=== PATIENT | male | born 1995 ===

== ENCOUNTER 2020-03-15 22:33 | Emergency (ER) | payer SELFPAY | END 2020-03-15 22:48 | disposition left against medical advice (07) | LOC: ED 22:33 | DX: Z53.21 Procedure and treatment not carried out due to patient leaving prior to being seen by health care provider (principal) ==

== ENCOUNTER 2020-06-07 21:03 | Emergency (ER) | payer SELFPAY ==
[~2020-06-07] VITALS: Ht 172.7 cm; Wt 66.7 kg
== END 2020-06-07 21:15 | disposition home or self-care (01) ==
LOC: ED 21:03
DX: Z02.89 Encounter for other administrative examinations (principal)